=== PATIENT | female | born 1940 | race Caucasian/White ===

== ENCOUNTER → 2016-11-29 | Outpatient (CLI) | payer OTHER, MEDICARE ==
[~2016-11-29] VITALS: Ht 172.7 cm; Wt 119.8 kg
[~2016-11-29] MED LIST: ALEVE220 MG PO; ALLER-EASE180 MG PO; AMITRIPTYLINE H50 M3 PO; ASPIR 8181 MG PO; ATORVASTATIN CA40 MG PO; BENAZEPRIL HCL40 MG PO; CALCIUM WITH V1 EAC1 PO; FISH OIL PO; FLUOXETINE HCL40 MG PO; GLUCOPHAGE PO; HUMALOG KW100 UNIT/1 SUBQ; HYDROCHLOROTHIA25 M2 PO; IRON325 PO; LANTUS100 UNIT/M SUBQ; MULTI VITAMIN1 EACH PO; NIZORAL120 ML TOP; NORVASC 5 MG TAB5 MG PO; OMEPRAZOLE 20 M20 M1 PO; PROBIOTIC1 EAC1 PO; SYNTHROID150 MCG PO; VITAMIN B-121000 MCG PO
--- NOTE | ~2016-11-29 | P ---
[facility] [place] [address] PROCEDURE REPORT Name: CALIXTO KILLIAN Room #: REG [facility]#: [id number] Admission: 11/29/16 Attend Phys: Delano Farah MD Discharge: Date of : 44 Report #: [id number] THIS REPORT FOR: //name// CC: Dr. Olga Brenner OUTPATIENT UPPER ENDOSCOPY REPORT BRIEF HISTORY: The patient is a 76-year-old woman who presents with findings of Hemoccult positive stools and she reports iron deficiency anemia; however, I do not have a number for her anemia with regards to hemoglobin. She does use Aleve, at least 2 daily and she also takes an aspirin daily. She has a history of esophagitis and had grade C esophagitis on her last exam, but is currently on omeprazole with good control of symptoms. PREOPERATIVE DIAGNOSES: Hemoccult positive stools and iron deficiency anemia. POSTOPERATIVE DIAGNOSES: 1. Diffuse erythematous gastritis without ulcers, erosions or bleeding. 2. A 3-4 cm sliding type hiatus hernia. SPECIMEN: Biopsies of small bowel, rule out celiac disease. ESTIMATED BLOOD LOSS: 3 mL. PROCEDURE: EGD with biopsy. FINDINGS: Prior to propofol sedation, procedure of upper endoscopy was discussed with the patient as well as potential risks and its complications. She indicates she understands and desires to proceed. DESCRIPTION OF PROCEDURE: With the patient in left lateral decubitus position, the [employer] video endoscope was inserted in the cervical esophagus under direct vision without difficulty. Examination of this organ through its entire length revealed normal esophageal mucosa down the squamocolumnar junction. The squamocolumnar junction was inspected and noted to be unremarkable. No ulcers, erosions or bleeding lesions were seen. She had previous grade C esophagitis and the mucosa was normal at this point. There is no evidence of Funes mucosa. Bleeding lesions were not seen. The scope was advanced in about a 3-4 cm sliding type hiatus hernia. The mucosa in the hernia was normal. No bleeding lesions were seen. No ulcers or erosions were seen. Scope was advanced into the stomach, was examined on end view as well as retroflexed views. There was an erythematous gastritis, but despite the fact she uses Aleve and aspirin, no ulcers, erosions or bleeding lesions were seen. Upon retroflexion, the hiatus hernia was seen. No other abnormalities were identified. The pylorus, duodenal bulb and postbulbar sweep were inspected down [facility] [address] [place] [address] PROCEDURE REPORT Name: CALIXTO KILLIAN Cammy [id number] Admission: 11/29/16 Attend Phys: Delano Farah MD Discharge: Date of : 44 Report #: [id number] to the third portion of duodenum. The mucosa was normal. No blood was seen. No ulcers or erosions were seen. In view of her history of iron deficiency anemia and her diabetes, biopsies were obtained to evaluate for celiac disease. At that point, the scope was slowly withdrawn and careful circumferential views confirmed the above findings. The patient tolerated the procedure well. CONDITION OF THE PATIENT UPON DISCHARGE: Following procedure, the patient was drowsy and prepared for colonoscopy. INSTRUCTIONS TO THE PATIENT AND FAMILY AT THE TIME OF DISCHARGE: A bleeding site or bleeding lesions were not seen on examination today. We will follow up on biopsies and make further recommendations. She is to continue her on omeprazole and she notes that if she stops it or misses a dose, within 1-2 days she will have recurrent symptoms and thus should continue. This will also be helpful in terms of prophylaxis from gastric duodenal injury from the Aleve and the aspirin. We will proceed with colonoscopy at this time. <ELECTRONICALLY SIGNED> By: Delano Farah MD 11/29/16 1949 1104 [id number] Delano Farah MD /nt
--- NOTE | ~2016-11-29 | P ---
[facility] [place] [address] PROCEDURE REPORT Name: CALIXTO KILLIAN Room #: REG [facility]#: [id number] Admission: 11/29/16 Attend Phys: Delano Farah MD Discharge: Date of : 44 Report #: [id number] THIS REPORT FOR: //name// CC: Delano Brenner DATE OF SERVICE: 11/29/2016 BRIEF HISTORY: The patient is a 76-year-old woman. She has a family history of colon cancer, father in his 50s to early 60s. She also is recently found to have Hemoccult positive stool. She also is anemic, although I do not have that lab value at this time. PREOPERATIVE DIAGNOSES: Anemia and family history of colon cancer. POSTOPERATIVE DIAGNOSES: 1. Diminutive polyp, cecum. 2. Diminutive polyp at 70 cm. 3. Moderate sigmoid diverticulosis coli. MEDICATIONS: Deep sedation with propofol per anesthesia. SPECIMEN: 1. Diminutive polyp, cecum. 2. Diminutive polyp at 70 cm. ESTIMATED BLOOD LOSS: 3 mL. PROCEDURE: Colonoscopy to cecum and terminal ileum with biopsy. FINDINGS: Prior to propofol sedation, procedure of colonoscopy discussed with the patient as well as potential risks and its complications. She indicates she understands and desires to proceed. DESCRIPTION OF PROCEDURE: With the patient in left lateral decubitus position, digital examination was completed which revealed no abnormalities. Subsequently, the [employer] video colonoscope was introduced into the rectum, advanced under direct vision to the cecum. Done with minimal difficulty. The cecum was identified by the ileocecal valve and the appendiceal orifice. I was able to visualize the distal segment of terminal ileum, which was inspected and noted to be unremarkable. No ulcers or erosions were seen. No blood was seen. At that point, the scope was slowly withdrawn and careful circumferential views obtained. The prep was good, the mucosa within normal limits, normal vascular pattern, normal light reflex. In the cecum, a diminutive polyp seen and removed by biopsy. As we withdrew the scope, an occasional diverticulum was seen in the [facility] [address] [place] [address] PROCEDURE REPORT Name: CALIXTO KILLIAN [id number] Admission: 11/29/16 Attend Phys: Delano Farah MD Discharge: Date of : 44 Report #: [id number] proximal colon. No bleeding lesions or blood was seen any time during this examination. As we withdrew the scope, no additional abnormalities were noted until the sigmoid was reached. At this point, she was noted to have moderately severe diverticular disease without endoscopic evidence of diverticulitis. Scope was withdrawn in the rectum. Upon retroflexion, no abnormalities were seen. Scope was withdrawn. The patient tolerated the procedure well. CONDITION OF THE PATIENT UPON DISCHARGE: Following procedure, the patient drowsy, aroused, conversant and will be discharged home when fully ambulatory. INSTRUCTIONS TO THE PATIENT AND FAMILY AT THE TIME OF DISCHARGE: I do not see an obvious bleeding lesion. Please also see upper endoscopy report. Small bowel biopsies were negative for celiac disease, may need to consider M2 capsule study. We will see if we can get hemoglobin from her primary's office as well. Due to the family history and finding of 2 polyps, I suggest followup colonoscopy in 5 years. As far as the heme positive stools and anemia, she is using nonsteroidals. We did not see any significant lesions on the upper endoscopy or the colon. She potentially could have small bowel disease from use of nonsteroidals. She should resume her iron at this point in time. Last colonoscopy was almost 3 years ago. Withdrawal time from the cecum was 14 minutes and 47 seconds. <ELECTRONICALLY SIGNED> By: Delano Farah MD 11/29/16 1949 1136 1535 Delano Farah MD /nt
--- NOTE | ~2016-11-29 | S ---
[facility] [address] [place] [address] SURGICAL PATH RPT PROCEDURE Name: CALIXTO KILLIAN Room #: REG GILBERTO [facility]#: [id number] Admission: 11/29/16 Date of : 44 Discharge: Report #: [id number] Path Case #: [id number] PATHOLOGY REPORT DRAFT COLLECTION DATE: 11/29/2016 RECEIVED DATE: 11/29/2016 SPECIMEN(S) RECEIVED: A.Small bowel bx B.Gastritis bx C.Plolyp at cecum D.Polyp at 70cm
== END | disposition home or self-care (01) ==
LOC: GI 08:12
DX: K63.5 Polyp of colon (principal); K57.30 Diverticulosis of large intestine without perforation or abscess without bleeding; K29.70 Gastritis, unspecified, without bleeding; K44.9 Diaphragmatic hernia without obstruction or gangrene; K21.9 Gastro-esophageal reflux disease without esophagitis; I10 Essential (primary) hypertension; E11.9 Type 2 diabetes mellitus without complications; E78.5 Hyperlipidemia, unspecified; E03.9 Hypothyroidism, unspecified; G47.33 Obstructive sleep apnea (adult) (pediatric); F32.89 Other specified depressive episodes; B19.10 Unspecified viral hepatitis B without hepatic coma; M19.90 Unspecified osteoarthritis, unspecified site; Z79.4 Long term (current) use of insulin; Z80.0 Family history of malignant neoplasm of digestive organs; Z87.19 Personal history of other diseases of the digestive system; Z90.49 Acquired absence of other specified parts of digestive tract; Z90.710 Acquired absence of both cervix and uterus; Z98.890 Other specified postprocedural states; Z79.899 Other long term (current) drug therapy; Z98.41 Cataract extraction status, right eye; Z98.42 Cataract extraction status, left eye; Z79.82 Long term (current) use of aspirin
CPT/HCPCS: 62110; 62900